=== PATIENT | female | born 1950 | race Caucasian/White ===

== ENCOUNTER 2019-09-16 06:49 | Inpatient (IN) ==
[2019-09-16] MEDS ORDERED: Naloxone 0.4 MG/ML INJ IVP PRN (09:46)
[2019-09-16] MEDS ORDERED: D5% in Water 1,000 ML IVC PRN (09:53)
[2019-09-16] MEDS ORDERED: *HR* Dextrose 50 % in Water (Syg) 50 ML SYRINGE IVP PRN (09:53)
[2019-09-16] MEDS ORDERED: *HR* Labetalol 20 MG/4 ML SYRINGE IVP PRN (09:53)
[2019-09-16] MEDS ORDERED: Dextrose Gel 15 GM/37.5 ML TUBE PO PRN ×2 (09:53)
[2019-09-16] MEDS ORDERED: Levalbuterol Neb 0.63 MG/3 ML IH PRN (09:56)
[2019-09-16] MEDS ORDERED: 0.9 % Sodium Chloride 250 ML IVC SCH (10:00)
[2019-09-16] MEDS ORDERED: Isovue-370 500 ML BOTTLE IVP ONE (10:31)
[2019-09-16] MEDS ORDERED: Sennosides/Docusate Sodium TABLET PO PRN (11:13)
[2019-09-16 11:33] LABS: Prothrombin Time 10.9 Seconds (9.4-12.1)
[2019-09-16 11:35] LABS: Activated Partial Thrombo Time 23.5 Seconds (26.0-36.0)
[2019-09-16] MEDS: Metoprolol XL (24 HR) Succ 25 MG TAB.ER.24H PO SCH (11:45)
[2019-09-16] MEDS: Furosemide 40 MG/4 ML VIAL IVP SCH ×2 (11:45→18:04)
[2019-09-16 11:49] LABS: Alanine Aminotransferase 27 Units/L (7-52); Albumin 3.1 g/dL (3.5-5.7); Albumin/Globulin Ratio 1.2 (1.1-2.2); Alkaline Phosphatase 94 Units/L (34-104); Aspartate Amino Transferase 27 Units/L (13-39); BUN/Creatinine Ratio 40 (6-26); Bilirubin,Total 0.4 mg/dL (0.3-1.0); Blood Urea Nitrogen 19 mg/dL (8-23); Calcium 8.8 mg/dL (8.6-10.3); Carbon Dioxide 36 mEq/L (23-29); Chloride 90 mEq/L (98-107); Chol/HDL Ratio 2.8 (0-4.9); Cholesterol 122 mg/dL (< 200); Globulin 2.6 g/dL (2.4-3.5); Glucose 121 mg/dL (70-105); HDL Cholesterol 43 mg/dL (40-59); LDL Cholesterol,Calculated 60 mg/dL (0-99); Magnesium 1.8 mg/dL (1.6-2.6); Osmolality,Calculated 280 (280-300); Phosphorous 3.7 mg/dL (2.7-4.5); Potassium 4.2 mEq/L (3.5-5.1); Sodium 133 mEq/L (136-145); Total Protein 5.7 g/dL (6.4-8.9); Triglycerides 96 mg/dL (< 150); eGFR For African Americans > 60 (> 60); eGFR For Non-African Americans > 60 (> 60)
[2019-09-16] MEDS: Pantoprazole 40 MG VIAL IVP SCH ×2 (11:58→18:04)
[2019-09-16] MEDS: Insulin LISPRO 300 UNITS/3 ML VIAL SQ SCH ×2 (12:03→18:20)
[2019-09-16 12:41] LABS: Hematocrit 24.5 % (35.3-44.9); Hemoglobin 8.4 g/dL (11.5-15.4); Immature Granulocytes % 0.6 % (0-4); Lymphocytes # 0.4 K/mcL (0.6-4.6); Mean Corpuscular HGB Conc 34.3 g/dL (31.6-35.5); Mean Corpuscular Hemoglobin 32.7 pg (28.0-33.3); Mean Corpuscular Volume 95.3 fL (83.0-100.0); Mean Platelet Volume 9.1 fL (9.4-12.4); Monocytes % 0.2 %; Neutrophils # 11.4 K/mcL (1.6-8.9); Platelet Count 298 K/mcL (140-400); Red Blood Count 2.57 M/mcL (3.82-4.97); Segmented Neutrophils % 96.2 %; White Blood Count 11.8 K/mcL (4.3-11.1)
[2019-09-16 12:48] LABS: Troponin I 0.08 ng/mL (< 0.04)
[2019-09-16 13:11] LABS: Platelet Estimate Normal (Normal); Reactive Lymphocytes Present (Not Present)
[2019-09-16 15:02] LABS: ABG Base Excess 12 mEq/L (-2 to 3); ABG HCO3 41 mEq/L (21-27); ABG Oxygen Saturation 40 % (95-98); ABG PCO2 90 mmHg (35-45); ABG PH 7.26 pH Units (7.32-7.45); ABG PO2 28 mmHg (85-104); ABG TCO2 43 mEq/L (20-26)
[2019-09-16 15:12] LABS: ABG Base Excess 12 mEq/L (-2 to 3); ABG HCO3 41 mEq/L (21-27); ABG Oxygen Saturation 46 % (95-98); ABG PCO2 86 mmHg (35-45); ABG PH 7.29 pH Units (7.32-7.45); ABG PO2 30 mmHg (85-104); ABG TCO2 44 mEq/L (20-26)
[2019-09-16] MEDS: Doxycycline 100 MG in 0.9 % Sodium Chloride Mini Bag 100 ML IVPB SCH (18:01)
[2019-09-16 18:13] LABS: Hematocrit 24.9 % (35.3-44.9); Hemoglobin 8.6 g/dL (11.5-15.4); Immature Granulocytes % 0.4 % (0-4); Lymphocytes # 0.7 K/mcL (0.6-4.6); Lymphocytes % 10.2 %; Mean Corpuscular HGB Conc 34.5 g/dL (31.6-35.5); Mean Corpuscular Hemoglobin 32.6 pg (28.0-33.3); Mean Corpuscular Volume 94.3 fL (83.0-100.0); Monocytes % 0.6 %; Neutrophils # 6.4 K/mcL (1.6-8.9); Platelet Count 298 K/mcL (140-400); Red Blood Count 2.64 M/mcL (3.82-4.97); Red Cell Distribution Width 19.8 % (11.5-14.5); Segmented Neutrophils % 88.8 %; White Blood Count 7.2 K/mcL (4.3-11.1)
[2019-09-16 19:57] LABS: Adenovirus Not Detected (Not Detect); Bordetella Pertussis Not Detected (Not Detect); Chlamydophila pneumoniae Not Detected (Not Detect); Coronavirus 229E Not Detected (Not Detect); Coronavirus HKU1 Not Detected (Not Detect); Coronavirus NL63 Not Detected (Not Detect); Coronavirus OC43 Not Detected (Not Detect); Human Metapneumovirus Not Detected (Not Detect); Human Rhinovirus/Enterovirus Not Detected (Not Detect); Influenza A Subtype 2009 H1 Not Detected (Not Detect); Influenza B Not Detected (Not Detect); Mycoplasma pneumoniae Not Detected (Not Detect); Parainfluenza Virus 1 Not Detected (Not Detect); Parainfluenza Virus 2 Not Detected (Not Detect); Parainfluenza Virus 3 Not Detected (Not Detect); Parainfluenza Virus 4 Not Detected (Not Detect); Respiratory Syncytial Virus Not Detected (Not Detect)
[2019-09-16 21:59] LABS: ABG Base Excess 15 mEq/L (-2 to 3); ABG HCO3 40 mEq/L (21-27); ABG Oxygen Saturation 94 % (95-98); ABG PCO2 52 mmHg (35-45); ABG PO2 65 mmHg (85-104); ABG TCO2 41 mEq/L (20-26); Blood Gas Modality NIV
[2019-09-17] MEDS: Insulin LISPRO 300 UNITS/3 ML VIAL SQ SCH ×4 (00:10→21:57)
[2019-09-17 01:36] LABS: % Iron Saturation 47 % (15-50); Iron 87 mcg/dL (50-170); Transferrin 132 mg/dL (203-362)
[2019-09-17] MEDS: Metoprolol XL (24 HR) Succ 25 MG TAB.ER.24H PO SCH (04:13)
[2019-09-17 04:17] LABS: Hematocrit 23.9 % (35.3-44.9); Hemoglobin 8.2 g/dL (11.5-15.4); Immature Granulocytes % 0.3 % (0-4); Lymphocytes # 0.8 K/mcL (0.6-4.6); Lymphocytes % 11.5 %; Mean Corpuscular HGB Conc 34.3 g/dL (31.6-35.5); Mean Corpuscular Hemoglobin 32.8 pg (28.0-33.3); Mean Corpuscular Volume 95.6 fL (83.0-100.0); Mean Platelet Volume 9.3 fL (9.4-12.4); Monocytes # 0.4 K/mcL (0.0-1.3); Platelet Count 325 K/mcL (140-400); Red Cell Distribution Width 19.9 % (11.5-14.5); Segmented Neutrophils % 82.2 %; White Blood Count 7.3 K/mcL (4.3-11.1)
[2019-09-17] MEDS: Doxycycline 100 MG in 0.9 % Sodium Chloride Mini Bag 100 ML IVPB SCH (06:11)
[2019-09-17] MEDS: Pantoprazole 40 MG VIAL IVP SCH (06:12)
[2019-09-17] MEDS ORDERED: Simethicone 40 MG/0.6 ML MLS IR STA (08:38)
[2019-09-17] MEDS ORDERED: Propofol 500 MG/50 ML INFUS..BTL ONE (09:29)
[2019-09-17] MEDS ORDERED: Lidocaine -MPF 2% 2 ML VIAL ONE (09:29)
[2019-09-17] MEDS: 0.9 % Sodium Chloride 500 ML IVC SCH (09:58)
[2019-09-17] MEDS: Furosemide 40 MG/4 ML VIAL IVP SCH ×2 (12:36→16:46)
[2019-09-17] MEDS: Sucralfate 1 GM TABLET PO SCH ×3 (12:36→21:57)
[2019-09-17] MEDS: Pantoprazole 40 MG in 0.9 % Sodium Chloride Mini Bag 100 ML IVC SCH ×3 (12:38→21:57)
[2019-09-17] MEDS ORDERED: Ondansetron ODT 4 MG TAB.RAPDIS PO PRN (14:40)
[2019-09-17] MEDS ORDERED: *HR* Metoprolol 5 MG/5 ML VIAL IVP ONE (15:13)
[2019-09-17] MEDS: *HR* OxyCODONE/APAP 5/325 TABLET PO PRN (16:41)
[2019-09-17] MEDS: Budesonide/Formoterol 80/4.5 1 PUFF INH IH SCH (20:33)
[2019-09-18] MEDS: Insulin LISPRO 300 UNITS/3 ML VIAL SQ SCH ×4 (02:23→17:32)
[2019-09-18] MEDS: *HR* OxyCODONE/APAP 5/325 TABLET PO PRN ×2 (02:53→22:27)
[2019-09-18] MEDS: Pantoprazole 40 MG in 0.9 % Sodium Chloride Mini Bag 100 ML IVC SCH ×2 (02:56→08:26)
[2019-09-18 05:30] LABS: Basophils % 0.1 %; Eosinophils # 0.1 K/mcL (0.0-0.6); Eosinophils % 0.4 %; Hematocrit 23.3 % (35.3-44.9); Hemoglobin 7.8 g/dL (11.5-15.4); Immature Granulocytes % 0.3 % (0-4); Lymphocytes # 1.2 K/mcL (0.6-4.6); Lymphocytes % 8.5 %; Mean Corpuscular HGB Conc 33.5 g/dL (31.6-35.5); Mean Corpuscular Hemoglobin 33.5 pg (28.0-33.3); Mean Platelet Volume 9.1 fL (9.4-12.4); Monocytes # 1.2 K/mcL (0.0-1.3); Monocytes % 8.9 %; Neutrophils # 11.3 K/mcL (1.6-8.9); Platelet Count 277 K/mcL (140-400); Red Blood Count 2.33 M/mcL (3.82-4.97); Red Cell Distribution Width 18.4 % (11.5-14.5); Segmented Neutrophils % 81.8 %
[2019-09-18 05:35] LABS: White Blood Count 13.8 K/mcL (4.3-11.1)
[2019-09-18] MEDS ORDERED: cefTRIAXone 2,000 MG in Water for inj. (sterile) 20 ML IVP SCH (06:00)
[2019-09-18] MEDS ORDERED: Azithromycin 500 MG in 0.9 % Sodium Chloride 250 ML IVPB SCH (06:00)
[2019-09-18 06:16] LABS: BUN/Creatinine Ratio 16 (6-26); Blood Urea Nitrogen 11 mg/dL (8-23); Calcium 8.2 mg/dL (8.6-10.3); Carbon Dioxide 40 mEq/L (23-29); Chloride 84 mEq/L (98-107); Glucose 104 mg/dL (70-105); Osmolality,Calculated 272 (280-300); Potassium 2.6 mEq/L (3.5-5.1); Sodium 131 mEq/L (136-145); eGFR For African Americans > 60 (> 60); eGFR For Non-African Americans > 60 (> 60)
[2019-09-18] MEDS: Budesonide/Formoterol 80/4.5 1 PUFF INH IH SCH ×2 (08:03→20:39)
[2019-09-18] MEDS: amLODIPine 5 MG TABLET PO SCH (08:25)
[2019-09-18] MEDS: Cholecalciferol (D-3) 1,000 UNIT (25MCG) TABLET PO SCH (08:25)
[2019-09-18] MEDS: 0.9 % Sodium Chloride 500 ML IVC SCH (08:25)
[2019-09-18] MEDS: Sucralfate 1 GM TABLET PO SCH ×4 (08:25→20:45)
[2019-09-18] MEDS: ALPRAZolam 0.5 MG TABLET PO SCH (08:25)
[2019-09-18] MEDS: Furosemide 40 MG/4 ML VIAL IVP SCH ×2 (08:26→16:28)
[2019-09-18] MEDS: levoFLOXacin 750 MG/150 ML 750 MG/150 ML BAG IVPB SCH (08:27)
[2019-09-18] MEDS: Lactobacillus 1 EACH CAP.SPRINK PO SCH (08:51)
[2019-09-18] MEDS ORDERED: NON-FORMULARY MEDICATION 1 EACH EACH (Cholecalciferol (Vitamin D3) [Vitamin D3] 1,000 UNIT PO SCH (09:00)
[2019-09-18] MEDS ORDERED: LACTOBACILLUS ACIDOPHILUS PO SCH (09:00)
[2019-09-18] MEDS: Acetaminophen 325 MG TABLET PO PRN (15:05)
[2019-09-18] MEDS: Pantoprazole 40 MG VIAL IVP SCH (17:32)
[2019-09-19] MEDS: Insulin LISPRO 300 UNITS/3 ML VIAL SQ SCH ×4 (01:07→18:03)
[2019-09-19] MEDS: Pantoprazole 40 MG VIAL IVP SCH ×2 (05:32→17:53)
[2019-09-19 06:20] LABS: Basophils % 0.1 %; Eosinophils # 0.1 K/mcL (0.0-0.6); Eosinophils % 1.1 %; Hematocrit 23.9 % (35.3-44.9); Hemoglobin 7.8 g/dL (11.5-15.4); Immature Granulocytes % 0.4 % (0-4); Lymphocytes # 1.1 K/mcL (0.6-4.6); Lymphocytes % 10.5 %; Mean Corpuscular HGB Conc 32.6 g/dL (31.6-35.5); Mean Corpuscular Hemoglobin 33.2 pg (28.0-33.3); Mean Corpuscular Volume 101.7 fL (83.0-100.0); Mean Platelet Volume 9.4 fL (9.4-12.4); Monocytes % 9.8 %; Neutrophils # 8.2 K/mcL (1.6-8.9); Platelet Count 211 K/mcL (140-400); Red Blood Count 2.35 M/mcL (3.82-4.97); Red Cell Distribution Width 18.1 % (11.5-14.5); Segmented Neutrophils % 78.1 %; White Blood Count 10.4 K/mcL (4.3-11.1)
[2019-09-19 06:26] LABS: BUN/Creatinine Ratio 18 (6-26); Blood Urea Nitrogen 10 mg/dL (8-23); Calcium 7.7 mg/dL (8.6-10.3); Carbon Dioxide 37 mEq/L (23-29); Chloride 90 mEq/L (98-107); Glucose 94 mg/dL (70-105); Osmolality,Calculated 277 (280-300); Potassium 3.2 mEq/L (3.5-5.1); Sodium 134 mEq/L (136-145); eGFR For African Americans > 60 (> 60); eGFR For Non-African Americans > 60 (> 60)
[2019-09-19] MEDS: Budesonide/Formoterol 80/4.5 1 PUFF INH IH SCH ×2 (07:44→20:32)
[2019-09-19] MEDS: levoFLOXacin 750 MG/150 ML 750 MG/150 ML BAG IVPB SCH (10:25)
[2019-09-19] MEDS: ALPRAZolam 0.5 MG TABLET PO SCH (10:26)
[2019-09-19] MEDS: amLODIPine 5 MG TABLET PO SCH (10:27)
[2019-09-19] MEDS: Cholecalciferol (D-3) 1,000 UNIT (25MCG) TABLET PO SCH (10:27)
[2019-09-19] MEDS: Sucralfate 1 GM TABLET PO SCH ×4 (10:27→21:25)
[2019-09-19] MEDS: *HR* OxyCODONE/APAP 5/325 TABLET PO PRN ×2 (10:27→21:25)
[2019-09-19] MEDS: Furosemide 40 MG/4 ML VIAL IVP SCH ×2 (10:27→17:54)
[2019-09-19] MEDS ORDERED: Metoprolol XL (24 HR) Succ 25 MG TAB.ER.24H PO ONE (16:30)
[2019-09-19] MEDS: Lactobacillus 1 EACH CAP.SPRINK PO SCH (17:54)
[2019-09-19] MEDS: Acetaminophen 325 MG TABLET PO PRN (21:25)
[2019-09-19] MEDS: Potassium Chloride Elixir 20 MEQ/15 ML UDC PO SCH (21:55)
[2019-09-20] MEDS: Insulin LISPRO 300 UNITS/3 ML VIAL SQ SCH ×4 (00:47→17:38)
[2019-09-20] MEDS: Pantoprazole 40 MG VIAL IVP SCH ×2 (05:41→17:47)
[2019-09-20 06:21] LABS: Basophils % 0.2 %; Eosinophils # 0.2 K/mcL (0.0-0.6); Eosinophils % 2.4 %; Hematocrit 23.4 % (35.3-44.9); Hemoglobin 7.6 g/dL (11.5-15.4); Immature Granulocytes % 0.5 % (0-4); Lymphocytes # 1.1 K/mcL (0.6-4.6); Lymphocytes % 11.4 %; Mean Corpuscular HGB Conc 32.5 g/dL (31.6-35.5); Mean Corpuscular Hemoglobin 33.2 pg (28.0-33.3); Mean Corpuscular Volume 102.2 fL (83.0-100.0); Mean Platelet Volume 9.3 fL (9.4-12.4); Monocytes % 10.3 %; Neutrophils # 7.3 K/mcL (1.6-8.9); Platelet Count 283 K/mcL (140-400); Red Blood Count 2.29 M/mcL (3.82-4.97); Red Cell Distribution Width 17.9 % (11.5-14.5); Segmented Neutrophils % 75.2 %; White Blood Count 9.7 K/mcL (4.3-11.1)
[2019-09-20 06:53] LABS: Magnesium 1.5 mg/dL (1.6-2.6)
[2019-09-20 07:12] LABS: BUN/Creatinine Ratio 16 (6-26); Blood Urea Nitrogen 10 mg/dL (8-23); Calcium 8.5 mg/dL (8.6-10.3); Carbon Dioxide 38 mEq/L (23-29); Chloride 86 mEq/L (98-107); Glucose 103 mg/dL (70-105); Osmolality,Calculated 273 (280-300); Potassium 4.3 mEq/L (3.5-5.1); Sodium 132 mEq/L (136-145); eGFR For African Americans > 60 (> 60); eGFR For Non-African Americans > 60 (> 60)
[2019-09-20] MEDS: Budesonide/Formoterol 80/4.5 1 PUFF INH IH SCH ×2 (07:43→20:05)
[2019-09-20] MEDS: Metoprolol XL (24 HR) Succ 50 MG TAB.ER.24H PO SCH (10:10)
[2019-09-20] MEDS: Sucralfate 1 GM TABLET PO SCH ×4 (10:10→22:22)
[2019-09-20] MEDS: ALPRAZolam 0.5 MG TABLET PO SCH (10:11)
[2019-09-20] MEDS: Cholecalciferol (D-3) 1,000 UNIT (25MCG) TABLET PO SCH (10:11)
[2019-09-20] MEDS: amLODIPine 5 MG TABLET PO SCH (10:11)
[2019-09-20] MEDS: Lactobacillus 1 EACH CAP.SPRINK PO SCH (10:11)
[2019-09-20] MEDS: Potassium Chloride Elixir 20 MEQ/15 ML UDC PO SCH (10:12)
[2019-09-20] MEDS: levoFLOXacin 750 MG/150 ML 750 MG/150 ML BAG IVPB SCH (10:13)
[2019-09-20] MEDS: Furosemide 40 MG/4 ML VIAL IVP SCH ×2 (10:13→17:47)
[2019-09-20] MEDS: *HR* OxyCODONE/APAP 5/325 TABLET PO PRN ×2 (10:17→22:22)
[2019-09-20 10:54] LABS: Folate 13.7 ng/mL (3.0-16.0)
[2019-09-20] MEDS: Acetaminophen 325 MG TABLET PO PRN (22:22)
[2019-09-21] MEDS: Insulin LISPRO 300 UNITS/3 ML VIAL SQ SCH ×3 (00:08→12:27)
[2019-09-21 05:33] LABS: Basophils % 0.2 %; Eosinophils # 0.2 K/mcL (0.0-0.6); Eosinophils % 2.4 %; Hematocrit 23.2 % (35.3-44.9); Hemoglobin 7.7 g/dL (11.5-15.4); Immature Granulocytes % 0.7 % (0-4); Lymphocytes # 1.2 K/mcL (0.6-4.6); Lymphocytes % 12.9 %; Mean Corpuscular HGB Conc 33.2 g/dL (31.6-35.5); Mean Corpuscular Hemoglobin 33.8 pg (28.0-33.3); Mean Corpuscular Volume 101.8 fL (83.0-100.0); Monocytes % 11.2 %; Neutrophils # 6.7 K/mcL (1.6-8.9); Platelet Count 328 K/mcL (140-400); Red Blood Count 2.28 M/mcL (3.82-4.97); Red Cell Distribution Width 18.3 % (11.5-14.5); Segmented Neutrophils % 72.6 %; White Blood Count 9.2 K/mcL (4.3-11.1)
[2019-09-21 05:59] LABS: BUN/Creatinine Ratio 23 (6-26); Blood Urea Nitrogen 15 mg/dL (8-23); Calcium 8.8 mg/dL (8.6-10.3); Carbon Dioxide 41 mEq/L (23-29); Chloride 85 mEq/L (98-107); Glucose 108 mg/dL (70-105); Osmolality,Calculated 269 (280-300); Potassium 4.4 mEq/L (3.5-5.1); Sodium 129 mEq/L (136-145); eGFR For African Americans > 60 (> 60); eGFR For Non-African Americans > 60 (> 60)
[2019-09-21] MEDS: Sucralfate 1 GM TABLET PO SCH ×2 (08:02→12:26)
[2019-09-21] MEDS: Metoprolol XL (24 HR) Succ 50 MG TAB.ER.24H PO SCH (08:02)
[2019-09-21] MEDS: Cholecalciferol (D-3) 1,000 UNIT (25MCG) TABLET PO SCH (08:02)
[2019-09-21] MEDS: amLODIPine 5 MG TABLET PO SCH (08:02)
[2019-09-21] MEDS: Lactobacillus 1 EACH CAP.SPRINK PO SCH (08:02)
[2019-09-21] MEDS: ALPRAZolam 0.5 MG TABLET PO SCH (08:02)
[2019-09-21] MEDS ORDERED: Furosemide 40 MG TABLET PO SCH (09:00)
[2019-09-21] MEDS: Budesonide/Formoterol 80/4.5 1 PUFF INH IH SCH (10:53)
[2019-09-21] MEDS: *HR* OxyCODONE/APAP 5/325 TABLET PO PRN (15:56)
[2019-09-21 15:57] VITALS: BP 113/79
== END 2019-09-21 17:07 | disposition home or self-care (01) | DRG 377 ==
LOC: CDU → SUATTDRO 08:17 → 2NENU 17:48 → SUATTDRO 09-17 17:57
PROVIDERS: ADMIT Internal Medicine; ATTEND Pharmacist
PROC: ENDOEBX (2019-09-17 15:50)